=== PATIENT | female | born 1990 | race Caucasian/White ===

== ENCOUNTER 2023-01-03 10:02 | Emergency (ER) | payer MEDICAID, SELFPAY ==
[2023-01-03 10:10] VITALS: BP 118/59; PULSE 87; RESP 16; TEMP 36.7; O2SAT 98; BMI 26.5
--- NOTE | 2023-01-03 10:21 | W.ED.SKABFB ---
HPI - Skin/Abscess/Foreign Bdy General: Chief complaint: Skin/Abscess/Foreign Body Stated complaint: skin problems Time Seen by Provider: 01/03/23 10:15 Source: patient Mode of arrival: ambulatory Limitations: no limitations History of Present Illness: Patient is a nice 32-year-old female with a history of psoriasis that was diagnosed approximately a decade ago here for complaints of worsening rash. 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 She has been treating at home with [id number] hydrocortisone cream. She has not seen a primary care provider in quite some time. She states over the past several days her rash has seemed to acutely worsen. MD complaint: rash Onset (ago): year(s) Tetanus up to date: yes Location: generalized Severity: severe Pain Consistency: constant Relieving factors: none Exacerbating factors: none Context: none Associated symptoms: Reports no associated symptoms; Deny chills or fever(s) Treatments prior to arrival: corticosteroid Review of Systems Const: Denies: fever(s), chills, body aches, fatigue or malaise Card: Denies: chest pain Resp: Denies: dyspnea Musc: Reports: extremity pain (associated with rash); Denies: neck pain, back pain, joint pain, joint swelling, joint redness or joint warmth Skin/Breast: Reports: rash Neuro: Denies: headache(s), numbness in extremities, weakness in extremities or sensory changes PFS ED PFSH: Medical History Cellulitis and abscess of hand Psoriasis Physical Exam Const: COMMON NORMALS: no acute distress, average body habitus, patient oriented x3, no limitations, healthy appearing, alert and well nourished GENERAL APPEARANCE: cooperative ORIENTATION/CONSCIOUSNESS: Yes awake, Yes oriented to person, Yes oriented to place and Yes oriented to time Extremity: NARRATIVE EXTREMITY EXAM: see below Neuro: COMMON NORMALS: patient oriented x3, moves all extremities, no focal motor deficits and no sensory deficits noted SENSORIUM/ORIENTATION: Yes alert, Yes oriented to person, Yes oriented to place and Yes oriented to time Skin: NARRATIVE SKIN EXAM: Patient has extensive psoriatic plaques affecting her bilateral upper and lower extremities, trunk, and groin. Several fissured lesions. RASHES: rashes noted Course Vital Signs: Vital signs: Vital Signs Temperature 98.1 F 01/03/23 10:10 Pulse Rate 87 01/03/23 10:10 Respiratory Rate 16 01/03/23 10:10 Blood Pressure 118/59 01/03/23 10:10 Pulse Oximetry 98 01/03/23 10:10 Oxygen Delivery Me thod Room Air 01/03/23 10:10 MDM - Skin/Abscess/Foreign Bdy Medicial Decision Making Patient certainly would benefit from systemic therapy. States she does have insurance now. Referral will be placed to get her an appointment with dermatology. In the meantime we will place her on oral steroids and give her a higher potency topical steroid. Return to ED precautions given. Discharge Plan Discharge Patient Disposition: Home Clinical Impression: Psoriasis Condition: Stable Prescriptions: New prednisone 10 mg tablet 60 mg PO DAILY 5 Days Qty: 30 0RF clobetasol-emollient 0.05 % cream 1 applic topical BID 14 Days Qty: 60 0RF No Action hydrocortisone 0.5 % Cream 1 applic TOPICAL BID ibuprofen 200 mg Tablet 800 mg PO Q6H PRN (Reason: Pain) Discharge Orders: Discharge ED (Routine); Ordered 01/03/23 Ordered By: Nisha Artis Activity Restrictions/Additional Instructions: As we discussed you need to follow-up with dermatology. I will place a referral with case management to get you set up with an appointment. Due to the extensiveness of your disease you most likely will require systemic therapy. In the meantime I will place you on oral steroids as well as a higher potency steroid cream. Please continue to use your 1% hydrocortisone cream (and not the prescribed steroid) on the face if needed or groin creases. Coding Level of Care Code ED Pesticide Use Medical Coordinator for Lily Abreu
[2023-01-03] MEDS: ketorolac 60 mg/2 mL INJ IM (10:31)
--- NOTE | 2023-01-03 12:33 | DCPLANNER ---
Addendum entered by Randa Culp 01/23/23 16:02: Patient did attend appointment scheduled with dermatology Addendum entered by Randa Culp 01/04/23 08:13: Patient has a follow up appointment scheduled for Wednesday, January 18, 2023 at 4:[address] Bethea at dermatology. Original Note: physical plant manager had message to schedule a follow up appointment for patient with dermatology. physical plant manager sent patients information to the front office staff at dermatology. Patients information will be printed and reviewed. Clinic will call patient with appointment information.
== END 2023-01-03 10:52 | disposition home or self-care (01) ==
PROVIDERS: Emergency Provider Physician Assistant
DX: L40.9 Psoriasis, unspecified (principal)
CPT/HCPCS: 96372; 99284; J1885

== ENCOUNTER 2023-01-18 16:53 | Outpatient (CLI) | payer MEDICAID, SELFPAY | END 2023-01-18 16:54 | disposition home or self-care (01) | PROVIDERS: Visit Provider Dermatology | DX: L40.0 Psoriasis vulgaris (principal); L40.59 Other psoriatic arthropathy | CPT/HCPCS: 99204 ==

== ENCOUNTER 2023-01-25 10:02 | Outpatient (CLI) | payer MEDICAID, SELFPAY ==
[2023-01-25 11:38] LABS: Hepatitis B Surface Antigen Non-Reactive (Nonreactive)
[2023-01-27 13:29] LABS: Quantiferon Mitogen >10.00 IU/mL; Quantiferon Nil 0.03 IU/mL; Quantiferon TB Gold NEGATIVE (NEGATIVE)
== END 2023-01-25 10:03 | disposition home or self-care (01) ==
PROVIDERS: Visit Provider Dermatology
DX: L40.0 Psoriasis vulgaris (principal)
CPT/HCPCS: 36415; 86480; 87340

== ENCOUNTER → 2023-02-20 11:26 | Outpatient (BNVA) | payer MEDICAID, SELFPAY | PROVIDERS: Visit Provider Nurse Practitioner | DX: J06.9 Acute upper respiratory infection, unspecified (principal); U07.1 COVID-19 | CPT/HCPCS: 87426 ==

== ENCOUNTER 2023-06-29 09:58 | Emergency (ER) | payer MEDICAID, SELFPAY ==
[2023-06-29 10:00] VITALS: BP 125/81; PULSE 86; RESP 18; TEMP 36.6; O2SAT 99; BMI 30.1
[2023-06-29 11:10] VITALS: BP 137/84; PULSE 79; O2SAT 100
--- NOTE | 2023-06-29 11:24 | CT_ITS ---
WS: [id number] CT ABDOMEN AND PELVIS WITH CONTRAST HISTORY: abd pain/blood in stool TECHNIQUE: Imaging performed of the abdomen and pelvis with IV contrast. Single phase imaging of the abdomen. Coronal and sagittal reformats are submitted. All CT scans at [facility] use at [address] one of these dose optimization techniques: automated exposure control; mA and/or kV adjustment per patient size (includes targeted exams where dose is matched to clinical indication); or iterative re construction. IV CONTRAST: Omnipaque 350; 100 mL IV. Oral contrast: No DLP: 678.33 mGy.cm COMPARISON: None available. Lower thorax: Lung bases are clear. Heart is normal size. No hiatal hernia. Liver/biliary system: Normal size with no intrahepatic dilatation. Gallbladder: Normal. No gallstones or wall thickening. No pericholecystic fluid. Pancreas: Normal size pancreas and pancreatic duct. No adjacent inflammation. Spleen: Normal size with granulomata. Adrenal glands: Normal RIGHT adrenal gland. 10 mm nodule LEFT adrenal gland too small to characterize . Right kidney: Normal. Left kidney: Normal. Aorta: Normal. Lymphadenopathy: None. Free fluid: None. GI tract: Normal appendix. No obstruction. No submucosal edema. No evidence for hemorrhage. Abdominal wall: Unremarkable abdominal wall. No hernia. Pelvis: No free fluid or adenopathy within the pelvis. Bones: Unremarkable. IMPRESSION: 1. No acute intra-abdominal or pelvic abnormalities. 2. Normal appendix. 3. No submucosal colonic edema or hemorrhage. No GI tract obstruction.
--- NOTE | 2023-06-29 11:24 | W.ED.GIBLEED ---
HPI - GI Bleed General: Chief complaint: GI Bleed Stated complaint: Blood in stool Time Seen by Provider: 06/29/23 11:01 Source: patient Mode of arrival: ambulatory Limitations: no limitations History of Present Illness: 33-year-old female states that she has been having intermittent lower abdominal pain along with bright red blood in her stools been going on for months. States she has not had any workup for it states that yesterday she had some pain and bleeding states that since resolved but she wanted to be checked out. She denies any vomiting denies any fevers. Associated symptoms: Reports abdominal pain; Denies chills, fever(s), headache(s), nausea, rash or vomiting Review of Systems Const: Denies: fever(s), chills, body aches or change in appetite ENMT: Denies: throat pain or dental pain Card: Denies: chest pain Resp: Denies: dyspnea GI: Reports: abdominal pain and hematochezia; Denies: nausea, vomiting or diarrhea : Denies: dysuria Musc: Denies: neck pain or back pain Skin/Breast: Denies: rash Neuro: Denies: headache(s) PFS ED PFSH: Medical History Cellulitis and abscess of hand Psoriasis Female Reproductive History: Date of last menstrual period: 06/28/23 Physical Exam Const: COMMON NORMALS: no acute distress, patient oriented x3 and healthy appearing HENMT: COMMON NORMALS: normocephalic and atraumatic HEAD & SCALP: normocephalic and atraumatic Eye: COMMON NORMALS: conjunctivae normal CONJUNCTIVA: Yes conjunctivae normal Neck/C-Spine: COMMON NORMALS: full ROM and supple Chest: COMMONS NORMALS: normal inspection of the chest Resp: COMMON NORMALS: normal respiratory effort Cardio: COMMON NORMALS: regular rate, regular rhythm and No murmurs present (Cardio) RATE: regular rate RHYTHM: regular rhythm GI: COMMON NORMALS: Normal to inspection, nondistended, normoactive bowel sounds present, Soft to palpation, non-tender and no masses PALPATION: Yes Soft to palpation Extremity: COMMON NORMALS: normal to inspection and full ROM Neuro: COMMON NORMALS: patient oriented x3, moves all extremities and no focal motor deficits Psych: COMMON NORMALS: mental status grossly normal, Normal thought process present and cooperative THOUGHT PROCESS: Normal thought process present Skin: COMMON NORMALS: no rashes or lesions noted and no wounds GENERAL SKIN EXAM: no rashes or lesions noted Course Vital Signs: Vital signs: Vital Signs Temperature 97.9 F 06/29/23 10:00 Pulse Rate 83 06/29/23 13:10 Respiratory Rate 18 06/29/23 10:00 Blood Pressure 128/88 06/29/23 13:10 Pulse Oximetry 94 06/29/23 13:10 Oxygen Delivery Me thod Room Air 06/29/23 13:10 MDM - GI Bleed Medical Decision Making Patient presents here with rectal bleeding also abdominal pains been going on for months her blood work here is normal CT shows no acute findings we will prescribe her Bentyl we will get her follow-up with surgery she is return if worsening she understands agrees to plan. Medical Records I reviewed the patient's medical records. Lab Data I reviewed the patient's lab results. 06/29/23 12:05 06/29/23 12:05 Laboratory Results WBC 8.58 10^3/uL (3.29-11.43) 06/29/23 12:05 RBC 4.89 10^6/uL (3.85-5.65) 06/29/23 12:05 Hgb 14.30 g/dL (11.27-16.99) 06/29/23 12:05 Hct 44.2 % (36-47) 06/29/23 12:05 MCV 90.4 fl (85-98) 06/29/23 12:05 MCH 29.2 pg (27-33) 06/29/23 12:05 MCHC 32.4 g/dL (30-55) 06/29/23 12:05 RDW 13.6 % (12.1-15.1) 06/29/23 12:05 Plt Count 243 10^3/cmm (157-399) 06/29/23 12:05 MPV 8.9 fL (7.4-10.4) 06/29/23 12:05 Neut % (Auto) 62.3 % 06/29/23 12:05 Lymph % (Auto) 28.4 % 06/29/23 12:05 [place] % (Auto) 5.9 % 06/29/23 12:05 Eos % (Auto) 2.3 % 06/29/23 12:05 Baso % (Auto) 0.8 % 06/29/23 12:05 Neut # (Auto) 5.33 10^3/uL (1.8-7.7) 06/29/23 12:05 Lymph # (Auto) 2.4 10^3/uL (0.8-4.8) 06/29/23 12:05 [place] # (Auto) 0.5 10^3/uL (0.2-0.9) 06/29/23 12:05 Eos # (Auto) 0.2 10^3/uL (0.0-0.8) 06/29/23 12:05 Baso # (Auto) 0.1 10^3/uL (0.0-0.1) 06/29/23 12:05 Nucleated RBC % (auto) 0 % 06/29/23 12:05 Nucleated RBCs # 0.0 /100WBC 06/29/23 12:05 PT 13.20 SECONDS (12.1-14.9) 06/29/23 12:20 INR 0.97 (0.8-1.2) 06/29/23 12:20 Sodium 136 mmol/L (136-145) 06/29/23 12:05 Potassium 4.2 mmol/L (3.5-5.1) 06/29/23 12:05 Chloride 104 mmol/L (98-107) 06/29/23 12:05 Carbon Dioxide 23 mmol/L (22-29) 06/29/23 12:05 Anion Gap 13.2 (5-19) 06/29/23 12:05 BUN 7 mg/dL (6-20) 06/29/23 12:05 Creatinine 0.6 mg/dL (0.5-0.9) 06/29/23 12:05 GFR Calculation 115.1 mL/min (90-130) 06/29/23 12:05 Glucose 83 mg/dL (65-115) 06/29/23 12:05 Calculated Osmolality 279 mOsm/kg (285-295) L 06/29/23 12:05 Calcium 9.4 mg/dL (8.5-10.5) 06/29/23 12:05 Total Bilirubin 0.6 mg/dL (0.15-1.2) 06/29/23 12:05 AST 164 U/L (0-32) H 06/29/23 12:05 ALT 149 U/L (0-33) H 06/29/23 12:05 Alkaline Phosphatase 146 U/L (35-105) H 06/29/23 12:05 Total Protein 7.0 g/dL (6.6-8.7) 06/29/23 12:05 Albumin 3.6 g/dL (3.5-5.2) 06/29/23 12:05 Globulin 3.4 g/dL (1.3-4.6) 06/29/23 12:05 HCG, Qual Negative (Negative) 06/29/23 12:05 All radiology interpretation(s) finalized by discharge Discharge Plan Discharge Patient Disposition: Home Clinical Impression: Abdominal pain, Acute lower GI bleeding Condition: Stable Prescriptions: New dicyclomine 20 mg tablet 20 mg PO TID PRN (Reason: abdominal pain) Qty: 20 0RF No Action Humira Pen 40 mg/0.8 mL pen injector kit 40 mg SUBCUT Q14D Discharge Orders: Discharge ED (Routine); Ordered 06/29/23 Ordered By: Deb West Referrals: Kailash Cedeno MD [Physician] - 1-3 days Discharge Diet: Advance as tolerated Discharge Activity: Resume usual activity Patient Instructions: GI Bleeding, Abdominal Pain (ED) Coding Level of Care Code ED Dust Collector Ore Crushing for Lily Abreu
--- NOTE | 2023-06-29 11:29 | PC.PHAR ---
pt states she is only taking her humira pen injection right now-pt states she hasnt taken her hydroxyzine pamoate 25mg tid prn,prozac 20mg daily and naltrexone 50mg take 25mg bid since jan 2023 pt states no longer takes-
[2023-06-29 12:18] VITALS: BP 108/79; PULSE 72; O2SAT 98
[2023-06-29 12:28] LABS: Basophils # 0.1 10^3/uL (0.0-0.1); Basophils % 0.8 %; Eosinophils # 0.2 10^3/uL (0.0-0.8); Eosinophils % 2.3 %; Hematocrit 44.2 % (36-47); Lymphocytes # 2.4 10^3/uL (0.8-4.8); Lymphocytes % 28.4 %; Mean Corpuscular HGB Conc 32.4 g/dL (30-55); Mean Corpuscular Hemoglobin 29.2 pg (27-33); Mean Corpuscular Volume 90.4 fl (85-98); Mean Platelet Volume 8.9 fL (7.4-10.4); Monocytes # 0.5 10^3/uL (0.2-0.9); Monocytes % 5.9 %; Neutrophils # 5.33 10^3/uL (1.8-7.7); Neutrophils % 62.3 %; Nucleated Red Blood Cells % 0 %; Platelet Count 243 10^3/cmm (157-399); Red Blood Count 4.89 10^6/uL (3.85-5.65); Red Cell Distribution Width 13.6 % (12.1-15.1); White Blood Count 8.58 10^3/uL (3.29-11.43)
[2023-06-29 12:42] LABS: INR 0.97 (0.8-1.2)
[2023-06-29 12:42] LABS: HCG, Serum Qual Negative (Negative)
[2023-06-29 12:49] LABS: Alanine Aminotransferase 149 U/L (0-33); Albumin Level 3.6 g/dL (3.5-5.2); Alkaline Phosphatase 146 U/L (35-105); Blood Urea Nitrogen 7 mg/dL (6-20); Calcium 9.4 mg/dL (8.5-10.5); Carbon Dioxide 23 mmol/L (22-29); Chloride 104 mmol/L (98-107); Globulin 3.4 g/dL (1.3-4.6); Glomerular Filtration Rate 115.1 mL/min (90-130); Glucose 83 mg/dL (65-115); Osmolality Calculated 279 mOsm/kg (285-295); Sodium 136 mmol/L (136-145); Total Bilirubin 0.6 mg/dL (0.15-1.2)
[2023-06-29 12:51] LABS: Anion Gap 13.2 (5-19); Aspartate Amino Transferase 164 U/L (0-32); Potassium 4.2 mmol/L (3.5-5.1)
[2023-06-29] MEDS: iohexol 350 mg/mL 500 mL Btl (per mL) IV (13:04)
[2023-06-29 13:10] VITALS: BP 128/88; PULSE 83; O2SAT 94
[2023-06-29 14:06] VITALS: BP 115/76; PULSE 74; O2SAT 99
--- NOTE | 2023-07-03 09:00 | DCPLANNER ---
Message was sent to general surgery on 07/03/23 at 0900. Clinic to contact patient
== END 2023-06-29 14:07 | disposition home or self-care (01) ==
PROVIDERS: Emergency Provider Emergency Medicine
DX: K92.2 Gastrointestinal hemorrhage, unspecified (principal); R10.30 Lower abdominal pain, unspecified
CPT/HCPCS: 74177; 80053; 84703; 85025; 85610; 99285; Q9967

== ENCOUNTER 2023-07-31 10:19 | Outpatient (CLI) | payer MEDICAID, SELFPAY | END 2023-07-31 10:20 | disposition home or self-care (01) | LOC: LAB 10:23 | PROVIDERS: Surgery; Visit Provider Internal Medicine Gastroenterology | DX: R19.7 Diarrhea, unspecified (principal) | CPT/HCPCS: 82274; 83630; 83993 ==

== ENCOUNTER 2024-04-03 11:42 | Outpatient (CLI) | payer MEDICAID, SELFPAY | END 2024-04-03 11:43 | disposition home or self-care (01) | LOC: LAB 11:43 | PROVIDERS: Visit Provider Nurse Practitioner Family | DX: L40.0 Psoriasis vulgaris (principal) | CPT/HCPCS: 36415; 86480 ==

== ENCOUNTER 2024-10-01 18:21 | Emergency (ER) | payer MEDICAID, SELFPAY ==
[2024-10-01 18:28] VITALS: BP 138/91; PULSE 80; RESP 16; TEMP 36.6; O2SAT 98; BMI 30.1
--- NOTE | 2024-10-01 18:40 | XRR_ITS ---
PROCEDURE INFORMATION: Exam: XR Left Ankle Exam date and time: 10/01/2024 7:03 PM Age: 34 years old Clinical indication: Injury or trauma; Fall; Blunt trauma; Ankle; Left TECHNIQUE: Imaging protocol: Radiologic exam of the left ankle. Views: 3 or more views. COMPARISON: No relevant prior studies available. FINDINGS: Bones/joints: Posterior dislocation of the talus by as much as 1.8 cm. This is associated with a minimally displaced medial malleolar fracture. There is also a severely comminuted mildly displaced/depressed distal fibular diaphyseal fracture. There is up to 8 mm medial displacement of the distal fracture fragments in relation to the fibular shaft. There is a mildly displaced intra-articular fracture of the posterior malleolus of the distal tibia. Soft tissues: Mild soft tissue swelling about the ankle. XR/XR ankle LT min 3V* [id number] IMPRESSION: Posterior dislocation of the talus associated with a trimalleolar ankle fracture as described above associated with mild adjacent soft tissue swelling.
--- NOTE | 2024-10-01 18:43 | ED_ITS ---
HPI - Extremity Problem General: Chief complaint: Extremity Injury, Lower Stated complaint: Left Ankle Injury Time Seen by Provider: 10/01/24 18:39 History of Present Illness: 34-year-old female presents emergency ro om after slipping as she was getting out of a pickup and slipped and injured her left ankle she is unable to bear weight she denies any other injuries. No recent illnesses. She not strike her head she not lose consciousness. Associated symptoms: Deny chest pain, fever(s) or rash Related Data Home Medications ?Medication ?Instructions ?Recorded ?Confirmed guselkumab 100 mg/mL subcutaneous mg SUBCUT 02/24/24 1 07/09/23 auto-injector (Tremfya) Previous Rx's ?Medication ?Instructions ?Recorded hydrocodone 5 mg-acetaminophen 325 1 tab PO Q6H PRN pa in #20 tabs 10/01/24 mg tablet promethazine 25 mg tablet 25 mg PO Q6H PRN nausea and 10/01/24 vomiting #20 tabs Knee Scooter #1 ea 10/03/24 hydrocodone 5 mg-acetaminophen 325 1 tab PO Q6H PRN pa in 5 days #20 10/03/24 mg tablet tabs Allergies Allergy/AdvReac Type Severity Reaction Status Date / Time codeine AdvReac Mild ADR-Itching Verified 10/03/24 10:56 Review of Systems Const: Denies: fever(s) or chills Card: Denies: chest pain Resp: Denies: dyspnea GI: Denies: abdominal pain : Denies: dysuria, urinary frequency or urinary urgency Musc: Denies: neck pain or back pain Skin/Breast: Denies: rash PFS ED PFSH: Medical History Cellulitis and abscess of hand Psoriasis Family History Father Diabetes Heart disease Social History Smoking and tobacco/nicotine status: current every day tobacco/nicotine user Alcohol intake: current Alcohol intake frequency: holidays/special occasions only Physical Exam Const: GENERAL APPEARANCE: cooperative ORIENTATION/CONSCIOUSNESS: Yes awake, Yes oriented to person, Yes oriented to place and Yes oriented to time HENMT: COMMON NORMALS: normocephalic, atraumatic and hearing grossly normal bilaterally HEAD & SCALP: normocephalic and atraumatic Resp: COMMON NORMALS: normal respiratory effort, No retractions, No use of accessory muscles and clear to auscultation bilaterally AUSCULTATION: clear to auscultation bilaterally Cardio: COMMON NORMALS: regular rate, regular rhythm and No murmurs present (Cardio) RATE: regular rate RHYTHM: regular rhythm Extremity: OTHER: Examination of the left ankle patient has good dorsalis pedis posterior tibialis pulses. Sensation normal good movement of the toes she has swelling about the ankle exquisite tenderness even light palpation. Neuro: SENSORIUM/ORIENTATION: Yes oriented to person, Yes oriented to place and Yes oriented to time Skin: COMMON NORMALS: no rashes or lesions noted GENERAL SKIN EXAM: no rashes or lesions noted Procedures Orthopedic Fracture Reduction Fracture #1: Side: left Fracture Reduction Location: other (Ankle) Analgesia: procedural sedation Technique: direct manipulation Post Reduction X-rays Demonstrate: anatomical reduction Post-reduction neuro exam: intact Post-reduction vascular exam: intact Splint Applied: Yes Patient Tolerated Procedure: well Procedural Sedation Indication: fracture/dislocation reduction ASA Class: I Preparation: cardiac cath lab manager applied, pulse oximeter, suction/airway equipment at bedside and IV secured IV Etomidate dose (mg): 10 Course Vital Signs: Vital signs: Vital Signs Temperature 98 F 10/01/24 18:28 Pulse Rate 81 10/01/24 20:38 Respiratory Rate 16 10/01/24 20:38 Blood Pressure 132/80 10/01/24 20:38 Pulse Oximetry 95 10/01/24 20:38 Oxygen Delivery Me thod Nasal Cannula 10/01/24 19:45 MDM - Extremity (Nontraumatic) Medical Decision Making Procedural sedation inline traction reduced well. Post reduction x-ray of the ankle near anatomical alignment. Splint placed will refer to orthopedic/podiatry. Reviewed findings with the patient discharge home with posterior splint as well as crutches recommend elevation and pain medications as needed. Referred to orthopedics Lab Data Radiology Impressions Ankle X-Ray 10/01/24 20:00 IMPRESSION: 1. Fine osseous details obscured by overlying cast. 2. Interval reduction of the previously dislocated talus in relation to the tibial plafond. Alignment appears anatomic. 3. Improved alignment of the posterior malleolar fracture. 4. Grossly stable alignment of the comminuted mildly displaced/depressed comminuted distal fibular diaphyseal fracture. 5. Slightly improved alignment of the minimally displaced medial malleolar fracture. Ankle CT 10/01/24 20:08 IMPRESSION: 1. Nondisplaced intra-articular medial malleolar fracture. 2. Nondisplaced intra-articular fracture of the posterior malleolus with approximately 2 mm of depression at the level of the articular surface of the posterior fracture fragment. 3. Comminuted fracture of the distal fibular diaphysis without extension into the ankle joint. 4. Three intra-articular fracture fragments located along the anterior aspect of the tibiotalar joint with the largest fragment measuring 4 x 4 x 2 mm. 5. Intra-articular fracture fragment measuring 3 x 3 x 4 mm located along the anteromedial aspect of the articular surface of talus adjacent to the anterior margin of the aforementioned nondisplaced medial malleolar fracture. 6. Tibiotalar articulation appears congruent. 7. Significant soft tissue swelling along the lateral aspect of the distal fibula and ankle. All radiology interpretation(s) finalized by discharge Discharge Plan Discharge Patient Disposition: Home Clinical Impression: Trimalleolar fracture of left ankle Condition: Stable Prescriptions: New hydrocodone-acetaminophen 5-325 mg tablet 1 tab PO Q6H PRN (Reason: pain) Qty: 20 0RF promethazine 25 mg tablet 25 mg PO Q6H PRN (Reason: nausea and vomiting) Qty: 20 0RF No Action (DME) Knee Scooter See Rx Instructions .Route .MEDSUPPLY Qty: 1 0RF Rx Instructions: As directed by Home hydrocodone-acetaminophen 5-325 mg tablet 1 tab PO Q6H PRN (Reason: pain) 5 Days Qty: 20 0RF Tremfya 100 mg/mL auto-injector SUBCUT Discharge Orders: Discharge ED (Routine); Ordered 10/01/24 Ordered By: Harsha Moyer Discharge Diet: Usual diet Discharge Activity: Limit activity as instructed Patient Instructions: Opioid Safety, Pain Management Activity Restrictions/Additional Instructions: Thank you for choosing [facility] for your healthcare needs today. It is very important that you follow up as instructed or that you return to the Emergency Department should you have concerns or if your condition changes or worsens in any way. You were seen in the emergency room with an ankle fracture. The fracture was reduced and splinted you should not bear any weight at all on the your left foot use the crutches. Whenever possible elevate the foot you can apply ice to reduce swelling you are given pain and nausea medications to use as needed. Case management make arrangements for you to see one of the optical instrument assembly supervisor in the next 1 to 2 days they will discuss your definitive care for the fracture. Leave the splint in place until you see the optical instrument assembly supervisor. Stand Alone Forms: Work/School Release Print Language: Macedonian Coding Level of Care Code ED Manager [place] for Lily Abreu
[2024-10-01] MEDS: ketorolac 30 mg/mL INJ IVP (18:57)
[2024-10-01] MEDS: ondansetron 2 mg/ML SDV 2 mL 4 MG IVP (18:57)
[2024-10-01] MEDS: morphine 4 mg/mL SDV 1 mL IVP (18:57)
[2024-10-01 18:59] VITALS: BP 134/76; PULSE 79; RESP 16; O2SAT 97
[2024-10-01 19:45] VITALS: BP 127/84; PULSE 90; RESP 16; O2SAT 99
[2024-10-01] MEDS: etomidate 2 mg/mL INJ SDV 10 mL 10 MG IVP (19:57)
--- NOTE | 2024-10-01 20:00 | XRR_ITS ---
PROCEDURE INFORMATION: Exam: XR Left Ankle Exam date and time: 10/01/2024 7:54 PM Age: 34 years old Clinical indication: Injury or trauma; Fall; Blunt trauma; Ankle; Left; Additional info: Post reduction TECHNIQUE: Imaging protocol: Radiologic exam of the left ankle. Views: 1 or 2 views. COMPARISON: CR (LOW EXM, ) 10/01/2024 7:03 PM FINDINGS: Bones/joints: Fine osseous details obscured by overlying cast. Interval reduction of previously dislocated talus in relation to the tibial plafond. Alignment appears anatomic. Improved alignment of the posterior malleolar fracture. Grossly stable alignment of the comminuted mildly displaced/depressed comminuted distal fibular diaphyseal fracture. Slightly improved alignment of the minimally displaced medial malleolar fracture. Soft tissues: Mild soft tissue swelling about the ankle. XR/XR ankle LT 2V [id number] IMPRESSION: 1. Fine osseous details obscured by overlying cast. 2. Interval reduction of the previously dislocated talus in relation to the tibial plafond. Alignment appears anatomic. 3. Improved alignment of the posterior malleolar fracture. 4. Grossly stable alignment of the comminuted mildly displaced/depressed comminuted distal fibular diaphyseal fracture. 5. Slightly improved alignment of the minimally displaced medial malleolar fracture.
[2024-10-01 20:03] VITALS: BP 149/90; PULSE 80; RESP 16; O2SAT 98
--- NOTE | 2024-10-01 20:08 | CTR_ITS ---
PROCEDURE INFORMATION: Exam: CT Left Lower Extremity Without Contrast, Ankle Exam date and time: 10/01/2024 8:20 PM Age: 34 years old Clinical indication: Injury or trauma; Fall; Blunt trauma; Ankle; Left; Additional info: Trimalleolar fracture TECHNIQUE: Imaging protocol: CT of the left lower extremity without contrast was performed. Exam focused on the ankle. Radiation optimization: All CT scans at this facility use at least one of these dose optimization techniques: automated exposure control; mA and/or kV adjustment per patient size (includes targeted exams where dose is matched to clinical indication); or iterative reconstruction. COMPARISON: CR (LOW EXM, ) 10/01/2024 7:54 PM RADIATION DOSE METRICS: Total DLP (mGy-cm): 126.58 FINDINGS: Bones/joints: Nondisplaced intra-articular medial malleolar fracture. Nondisplaced intra-articular fracture of the posterior malleolus with approximately 2 mm of depression at the level of the articular surface of the posterior fracture fragment. Comminuted fracture of the distal fibular diaphysis without extension into the ankle joint. Three intra-articular fracture fragments located along the anterior aspect of the tibiotalar joint with the largest fragment measuring 4 x 4 x 2 mm. Intra-articular fracture fragment measuring 3 x 3 x 4 mm located along the anteromedial aspect of the articular surface of talus adjacent to the anterior margin of the aforementioned nondisplaced medial malleolar fracture. Tibiotalar articulation appears congruent. Soft tissues: Significant soft tissue swelling along the lateral aspect of the distal fibula and ankle. No evidence tendinous rupture or entrapment. CT/CT ankle LT wo con* [id number] IMPRESSION: 1. Nondisplaced intra-articular medial malleolar fracture. 2. Nondisplaced intra-articular fracture of the posterior malleolus with approximately 2 mm of depression at the level of the articular surface of the posterior fracture fragment. 3. Comminuted fracture of the distal fibular diaphysis without extension into the ankle joint. 4. Three intra-articular fracture fragments located along the anterior aspect of the tibiotalar joint with the largest fragment measuring 4 x 4 x 2 mm. 5. Intra-articular fracture fragment measuring 3 x 3 x 4 mm located along the anteromedial aspect of the articular surface of talus adjacent to the anterior margin of the aforementioned nondisplaced medial malleolar fracture. 6. Tibiotalar articulation appears congruent. 7. Significant soft tissue swelling along the lateral aspect of the distal fibula and ankle.
[2024-10-01 20:38] VITALS: BP 132/80; PULSE 81; RESP 16; O2SAT 95
--- NOTE | 2024-10-02 08:34 | DCPLANNER ---
Scheduled with patient for Podiatry Appointment 10/03/24 @ 0209
== END 2024-10-01 20:54 | disposition home or self-care (01) ==
PROVIDERS: Emergency Provider Family Medicine
DX: S82.855A Nondisplaced trimalleolar fracture of left lower leg, initial encounter for closed fracture (principal); Z72.0 Tobacco use; W01.0XXA Fall on same level from slipping, tripping and stumbling without subsequent striking against object, initial encounter
CPT/HCPCS: 27818; 73600; 73610; 73700; 96374; 96375; 99152; 99285; J1885; J2270; J2405; J3490

== ENCOUNTER 2024-10-09 07:21 | Day surgery (SDC) | payer MEDICAID, SELFPAY ==
[2024-10-09] VITALS (20 sets, daily range): BP systolic 105–136; BP diastolic 68–98; PULSE 69–98; RESP 14–20; TEMP 36.2–36.6; O2SAT 92–100
--- NOTE | 2024-10-09 | XR_ITS ---
WS: [id number] C-ARM RADIOGRAPHS LEFT ANKLE; 4 IMAGES HISTORY: ORIF left trimalleolar ankle fracture COMPARISON: 10/09/2024 radiographs, 10/01/2024 radiographs. Status post plate and screw fixation distal fibular and tibial fractures. Fracture is in good position and alignment. Study is significantly compromised by portable technique and motion. XR/XR ankle LT 2V [id number] IMPRESSION: Status post ORIF LEFT ankle fracture.
[2024-10-09 07:44] LABS: OR HCG Qualitative Urine Negative (Negative)
--- NOTE | 2024-10-09 07:58 | P.HPUD_ITS ---
Surgery/Procedure H&P Update DATE OF PROCEDURE: October 09, 2024 DATE H&P PERFORMED: 10/03/24 H&P UPDATE INFORMATION: I have reviewed H&P completed within last 30 days, I have examined patient prior to procedure, No changes to prior documentation, H&P is in [facility] EMR on date indicated and Risks and benefits of the procedure reviewed PREOP DIAGNOSIS: Left trimalleolar ankle fracture PLANNED PROCEDURE: Operation Date: 10/09/24 09:00 Proposed Procedures p ORIF Ankle ORIF Trimalleolar Fracture(Left) - Kailash Donovan DPM s Syndesmotic Repair(Left) - ADITYA Bess Left ankle arthroscopy with loose body removal(Left) - Kailash Donovan DPM
[2024-10-09] MEDS: sodium chloride 0.9% 1,000 ML 30 ML IV (08:08)
[2024-10-09] MEDS: CELEcoxib 200 mg Capsule 400 MG PO (08:10)
[2024-10-09] MEDS: gabapentin 300 mg Capsule PO (08:11)
--- NOTE | 2024-10-09 08:36 | SUR.PREOP ---
LEFT POPLITEAL NERVE BLOCK PERFORMED BY DOCTOR Vasquez, USING 20ML OF 0.5% ROPIVACAINE, WITH 4MG OF DECADRON. PT ON [employer] SPECIALIST SHOWING NSR. PT TOLERATED PROCEDURE WELL.
--- NOTE | 2024-10-09 08:37 | ANES.PREANE2 ---
Pre-Anesthetic Assessment Height/Weight: Height 1.6 m Weight 7.711 kg Temp Pulse Resp BP Pulse Ox O2 Del Method 97.8 F 78 18 119/73 96 Room Air 10/09/24 07:51 10/09/24 08:20 10/09/24 08:20 10/09/24 08:20 10/09/24 08:20 10/09/24 08:20 Preop Diagnosis: Left trimalleolar ankle fracture Operation Date: 10/09/24 09:00 Proposed Procedures p ORIF Ankle ORIF Trimalleolar Fracture(Left) - Kailash Donovan DPM s Syndesmotic Repair(Left) - ADITYA Bess Left ankle arthroscopy with loose body removal(Left) - Kailash Donovan DPM Familial anesthetic complications: None Was Beta Kristopher taken within 24 hours: N/A Was Clonidine taken within 24 hours: N/A Last intake: Intake Last Liquid Date 10/08/24 Last Liquid Time 23:30 Last Solid Date 10/08/24 Last Solid Time 19:00 Social Tobacco and No alcohol Exam alert, oriented x 3, clear to auscultation bilaterally and regular rate & rhythm Airway Mallampati: Class I Dentition: other (very poor dentition) Musc/skel psoriasis Anesthetic Plan ASA status: 2 Anesthesia: General and Regional (specify below) Risk of > 500 ml blood loss (7ml/kg in children): No Medications/Allergies Home Medications ?Medication ?Instructions ?Recorded ?Confirmed ?Last Taken ?Type guselkumab 100 mg/mL subcutaneous 100 mg SUBCUT .Q8W 02/24/24 10/08/24 09/17/24 History auto-injector (Tremfya) hydrocodone 5 mg-acetaminophen 325 1 tab PO Q6H PRN pain #20 tabs 10/01/24 10/08/24 10/09/24 Rx mg tablet promethazine 25 mg tablet 25 mg PO Q6H PRN nausea and 10/01/24 10/08/24 Unknown Rx vomiting #20 tabs Knee Scooter #1 ea 10/03/24 10/03/24 Unknown Rx ibuprofen 800 mg tablet 800 mg PO TID 10/08/24 10/08/24 10/08/24 History hydrocodone 10 mg-acetaminophen 1 tab PO Q6H PRN pain #28 tabs 10/09/24 Unknown Rx 325 mg tablet Allergies Allergy/AdvReac Type Severity Reaction Status Date / Time codeine AdvReac Mild ADR-Itching Verified 10/08/24 10:14 Current Medications Generic Name Dose Route Start Last Admin Trade Name Anthony PRN Reason Stop Dose Admin Sodium Chloride 1,000 mls @ 30 mls/hr 10/09/24 07:30 10/09/24 08:08 Sodium Chloride 0.9% IV 10/10/24 07:29 30 mls/hr .Q24H YOUSUF Administration PFSH Anesthesia Medical History Cellulitis and abscess of hand Psoriasis Family History Father Diabetes Heart disease Social History Smoking and tobacco/nicotine status: current every day tobacco/nicotine user Alcohol intake: current Alcohol intake frequency: holidays/special occasions only Female Reproductive History Date of last menstrual period: 09/10/24 Anesthesia Procedures Nerve Block Nerve Block 1: Main Anesthesia: general anesthesia Time Out Performed: Yes Consent: requested by attending/covering physician, from patient, from other, risks and benefits reviewed and patient agrees to proceed Nerve block location: popliteal (L) Anesthesia monitors applied: pulse oximetry, EKG and BP cuff Nerve block position: supine Anesthetic Used: ropivicaine 0.5% (20 ml) and with decadron (4 mg) Ultrasound used to: recognize landmarks Interscalene/Femoral BLK: 4 stimuplex 21 g needle used for position and inplane approach, visualize local anesthetic spread and no vascular puncture identified Injection: neg aspiration of heme Patient Tolerated Procedure: well Complications: none
[2024-10-09] MEDS: ceFAZolin 2,000 mg SDV 2000 MG IVP (09:25)
--- NOTE | 2024-10-09 12:12 | XR_ITS ---
WS: [id number] Exam: XR ankle LT min 3V* [id number] Date/Time of Exam: 10/09/2024 12:23 PM Reason For Exam: post op Comparison 10/01/2024. There is plate and screw fixation involving fractures of the lower fibula and posterior tibial shelf. There is also a single screw stabilizing a transverse fracture of the medial malleolus. Alignment appears satisfactory for healing. No obvious hardware complication.
--- NOTE | 2024-10-09 12:12 | W.PM.BPON ---
Date of procedure: 10/09/24 Surgeon name: Dr. Kailash Donovan DPM Product Inspection Coordinator(s) name(s): Hernan Procedure(s) performed: ORIF left trimalleolar ankle fracture Description of findings: Left trimalleolar ankle fracture with comminution of fibula Estimated blood loss: 5cc Tourniquet time: 120 minutes Specimen(s) removed: none Post-operative diagnosis: Left trimalleolar ankle fracture
--- NOTE | 2024-10-09 12:14 | P.OP_ITS ---
Operative Report Date of procedure: October 09, 2024 Surgeon: Kailash Donovan DPM Procedure: Date of procedure: 10/09/2024 Pre-op diagnosis: Left trimalleolar ankle fracture Post-op diagnosis: Same Post-op findings: Left trimalleolar ankle fracture Procedure done: Open reduction internal fixation left trimalleolar ankle fracture CPT 03648 Implants: Posterior malleolus plate, posterior fibular plate with corresponding locking and nonlocking 3.5 screws, 4.0 medial malleolus screw all from [place] Specimens removed: None Surgeon: Dr. Kailash Donovan DPM Shearing Machine Tender: Hernan Estimated blood loss: 5 cc Tourniquet time: 120 minutes Complications: None Patient is a 34-year-old female that has a history of left trimalleolar ankle fracture. The patient has had the aforementioned chief complaint for some time. Conservative treatment measures have been attempted and the patient has opted for surgical intervention at this time. A lengthy discussion regarding the procedure, including risks and complications has been had with the patient and is noted in the recent clinic note. Written and verbal consent have been obtained. All patient questions have been answered to the patient?s satisfaction. No written or verbal guarantees have been given or implied. The patient has been NPO since midnight. The history has been reviewed and the history and physical is current. The signed consent was confirmed and placed in the patient chart. Patient imaging has been reviewed and is consistent with the diagnosis. Under mild sedation, the patient was brought into the operating room and placed on the table in the prone position. IV antibiotics were given by the anesthesia team as preoperative surgical prophylaxis. General sedation was then performed by the anesthesiateam. A popliteal/adductor canal block was performed with anesthesia department. A pneumatic tourniquet was then placed about the left thigh. The operative extremity was then prepped and draped in the usual fashion. The extremity was then elevated and exsanguinated before the tourniquet was inflated to 325 mmHg. After inflation, the following procedure was then performed. Attention was directed to the posterior aspect of the left ankle where an 8 cm incision was made posterolaterally. This was made using a #15 blade. Dissection was carried down through subcutaneous the superficial fascia. Peroneal fascia was incised and peroneals were retracted out of the operative field. Flexor hallucis longus muscle belly was identified fascia was released and muscle belly was retracted out of the operative field. Sural nerve was identified and retracted out of the operative field. Dissection was carried down to the level of the posterior aspect of the tibia. Posterior malleolus fracture fragment was visualized. Hematoma was cleared from the fracture site. Fracture was reduced to appropriate anatomic position for temporary fixation. A posterior malleolar plate from [place] 28 with 3.5 locking and nonlocking screws was applied to the posterior aspect of the tibia. Good positioning of plate and screws was noted. Attention was then directed to the posterior aspect of the fibula. Peroneals were retracted of the way to expose the fibular fracture whi ch showed significant comminution. This was reduced to an acceptable anatomic position before a posterior fibular plate was applied to the posterior aspect of the fibula. This plate was used in a bridge plate fashion to span the comminution. Good position of the plate and screws was noted clinically as well as on C-arm imaging. Site was irrigated with copious amounts of sterile saline before attention was directed to closure. Deep tissue was closed with 3-0 Vicryl followed by subcuticular closure with 4-0 Vicryl and skin closure with 3- 0 nylon in horizontal mattress fashion. The tourniquet was let down the patient was flipped to the supine position. Patient was redraped and prepped. Attention was then directed to the medial malleolus. The medial malleolus was reduced to an appropriate anatomic position. A K wire was driven across the fracture site. #15 blade was used to incise around the wire. Blunt dissection was carried down to the level of the medial malleolus. Drilled for 4.0 cannulated screw was then used to overdrilled the wire in preparation for the screw. A 4.0 headed short threaded compression screw was then inserted over the wire across the fracture site. Good alignment of the fracture site was noted. Talus was well-positioned within the mortise with ankle joint being congruent. Syndesmosis was stressed and was noted to be intact. It was determined at this point due to the swelling that ankle arthroscopy would be detrimental to patient's rehabilitation. Will return to the operating room in coming weeks for ankle arthroscopy. Incision site was irrigated with sterile saline before being dressed with 3-0 nylon. All incisions were then dressed with Xeroform, 4 x 4 gauze, Kerlix, Kodi bandage. The patient tolerated the procedure and anesthesia well and without complication. The patient was transported from the operating room to the recovery room with vital signs stable and vascular status intact to all digits of the left foot. The patient was given both written and verbal instructions to remain nonweightbearing to the operative extremity, to keep dressings/splint clean, dry and intact and to take pain medication as directed. The patient will follow-up in the outpatient setting at their scheduled appointment. The patient was discharged with my personal number and was instructed to call if any questions or issues should arise. They were discharged home once anesthesia criteria was met.
[2024-10-09] MEDS: fentaNYL 50 mcg/mL INJ 2mL IVP (12:45)
--- NOTE | 2024-10-09 14:45 | ANE.PACU2 ---
Inpatient post-anesthesia follow up: Airway intact: Yes Vital signs: Temperature 97.8 F Pulse Rate 84 Respiratory Rate 16 Blood Pressure 120/72 Pulse Oximetry 94 Oxygen Delivery Me thod Room Air Oxygen Flow Rate 2 Fraction of Inspir ed Oxygen Hydration adequate: Yes Nausea and vomiting: No Pain level: 2 Mental status: Baseline
== END 2024-10-09 14:45 | disposition home or self-care (01) ==
PROVIDERS: Anesthesiology; PCP Podiatrist Foot & Ankle Surgery; Visit Provider Podiatrist Foot & Ankle Surgery
PROC: (CPT 27823; principal; 2024-10-09 09:00)
DX: S82.852A Displaced trimalleolar fracture of left lower leg, initial encounter for closed fracture (principal); F17.200 Nicotine dependence, unspecified, uncomplicated; Z79.899 Other long term (current) drug therapy; Z88.5 Allergy status to narcotic agent; V58.4XXA Person boarding or alighting a pick-up truck or van injured in noncollision transport accident, initial encounter
CPT/HCPCS: 27823; 73600; 73610; 76000; 81025; C1713; J0690; J1100; J1171; J2405; J2704; J2795; J3010; J7030; J9999

== ENCOUNTER → 2024-10-15 11:10 | Outpatient (BNVA) | payer MEDICAID, SELFPAY | PROVIDERS: PCP Podiatrist Foot & Ankle Surgery; Visit Provider Podiatrist Foot & Ankle Surgery | DX: S82.852A Displaced trimalleolar fracture of left lower leg, initial encounter for closed fracture (principal); S93.432A Sprain of tibiofibular ligament of left ankle, initial encounter; M24.072 Loose body in left ankle; X58.XXXA Exposure to other specified factors, initial encounter | CPT/HCPCS: 73610 ==

== ENCOUNTER → 2024-10-23 15:21 | Outpatient (BNVA) | payer MEDICAID, SELFPAY | PROVIDERS: PCP Podiatrist Foot & Ankle Surgery; Visit Provider Podiatrist Foot & Ankle Surgery | DX: M24.072 Loose body in left ankle (principal); Z98.890 Other specified postprocedural states; S93.432D Sprain of tibiofibular ligament of left ankle, subsequent encounter; S82.852D Displaced trimalleolar fracture of left lower leg, subsequent encounter for closed fracture with routine healing; W19.XXXD Unspecified fall, subsequent encounter | CPT/HCPCS: 73610 ==

== ENCOUNTER → 2024-11-06 13:42 | Outpatient (BNVA) | payer SELFPAY | PROVIDERS: PCP Podiatrist Foot & Ankle Surgery; Visit Provider Podiatrist Foot & Ankle Surgery | DX: M25.572 Pain in left ankle and joints of left foot (principal); Z98.890 Other specified postprocedural states; S82.852A Displaced trimalleolar fracture of left lower leg, initial encounter for closed fracture; S93.432A Sprain of tibiofibular ligament of left ankle, initial encounter; M24.072 Loose body in left ankle; X58.XXXA Exposure to other specified factors, initial encounter | CPT/HCPCS: 73610 ==

== ENCOUNTER 2024-11-18 06:49 | Day surgery (SDC) | payer SELFPAY ==
[2024-11-18] VITALS (10 sets, daily range): BP systolic 94–144; BP diastolic 61–93; PULSE 63–81; RESP 13–21; TEMP 36.3–37.2; O2SAT 92–100; BMI 28.3
--- NOTE | 2024-11-18 07:25 | W.PM.OPSUD ---
Surgery/Procedure H&P Update DATE OF PROCEDURE: November 18, 2024 DATE H&P PERFORMED: 11/06/24 H&P UPDATE INFORMATION: I have reviewed H&P completed within last 30 days, I have examined patient prior to procedure, No changes to prior documentation, H&P is in [facility] EMR on date indicated and Risks and benefits of the procedure reviewed PREOP DIAGNOSIS: Loose body left ankle PLANNED PROCEDURE: Operation Date: 11/18/24 08:15 Proposed Procedures p LEFT Ankle Arthroscopy(Left) - Kailash Donovan DPM
--- NOTE | 2024-11-18 07:32 | ANES.PREANE2 ---
Pre-Anesthetic Assessment Height/Weight: Height 1.6 m Weight 72.575 kg Temp Pulse Resp BP Pulse Ox O2 Del Method 97.9 F 77 18 144/93 98 Room Air 11/18/24 07:00 11/18/24 07:00 11/18/24 07:00 11/18/24 07:00 11/18/24 07:00 11/18/24 07:00 Preop Diagnosis: Loose body left ankle Operation Date: 11/18/24 08:15 Proposed Procedures p LEFT Ankle Arthroscopy(Left) - Kailash Donovan DPM Familial anesthetic complications: None Was Beta Kristopher taken within 24 hours: N/A Was Clonidine taken within 24 hours: N/A Last intake: Intake Last Liquid Date 11/17/24 Last Liquid Time 23:55 Last Solid Date 11/17/24 Last Solid Time 21:00 Social No alcohol and No tobacco Exam alert, oriented x 3, clear to auscultation bilaterally and regular rate & rhythm Airway Mallampati: Class I Dentition: full Anesthetic Plan ASA status: 1 Anesthesia: General and Regional (specify below) Risk of > 500 ml blood loss (7ml/kg in children): No Medications/Allergies Home Medications ?Medication ?Instructions ?Recorded ?Confirmed ?Last Taken ?Type guselkumab 100 mg/mL subcutaneous 100 mg SUBCUT .Q8W 02/24/24 11/18/24 09/17/24 History auto-injector (Tremfya) promethazine 25 mg tablet 25 mg PO Q6H PRN nausea and 10/01/24 11/14/24 Unknown Rx vomiting #20 tabs Knee Scooter #1 ea 10/03/24 11/06/24 Unknown Rx ibuprofen 800 mg tablet 800 mg PO TID 10/08/24 11/18/24 11/17/24 History gabapentin 300 mg capsule 300 mg PO DAILY 30 days #30 caps 10/23/24 11/14/24 11/17/24 Rx tizanidine 4 mg tablet 4 mg PO DAILY PRN muscle 10/23/24 11/14/24 11/16/24 Rx spasticity #30 tabs Allergies Allergy/AdvReac Type Severity Reaction Status Date / Time codeine AdvReac Mild ADR-Itching Verified 11/18/24 07:25 [facility] Anesthesia Medical History Cellulitis and abscess of hand Psoriasis Family History Father Diabetes Heart disease Social History Smoking and tobacco/nicotine status: never used tobacco/nicotine Alcohol intake: current Alcohol intake frequency: holidays/special occasions only
[2024-11-18 07:34] LABS: OR HCG Qualitative Urine Negative (Negative)
[2024-11-18] MEDS: sodium chloride 0.9% 1,000 ML 30 ML IV (07:39)
[2024-11-18] MEDS: gabapentin 300 mg Capsule PO (07:52)
[2024-11-18] MEDS: CELEcoxib 200 mg Capsule 400 MG PO (07:52)
--- NOTE | 2024-11-18 07:53 | ANES.PROC ---
Anesthesia Procedures Procedure/Date: 11/18/24 Nerve Block ^: Nerve Block 1: Main Anesthesia: general anesthesia Time Out Performed: Yes Consent: requested by attending/covering physician, from patient, from other, risks and benefits reviewed and patient agrees to proceed Nerve block location: popliteal (L) Anesthesia monitors applied: pulse oximetry, EKG and BP cuff Nerve block position: supine Anesthetic Used: ropivicaine 0.5% (30 ml) and with decadron (4 mg) Ultrasound used to: recognize landmarks Interscalene/Femoral BLK: 4 stimuplex 21 g needle used for position and inplane approach, visualize local anesthetic spread and no vascular puncture identified Injection: neg aspiration of heme Patient Tolerated Procedure: well Complications: none Other Information: Diagnosis: L ankle Syndesmotic disruption
[2024-11-18] MEDS: ceFAZolin 2,000 mg SDV 2000 MG IVP (07:59)
--- NOTE | 2024-11-18 08:03 | SUR.PREOP ---
07:48 EDUARDO performed timeout and popliteal block to left lower extremity using 30mL of 0.5% ropivicaine with ultrasound imaging. Images obtained and patient tolerated well.
--- NOTE | 2024-11-18 08:54 | P.OP_ITS ---
Operative Report Date of procedure: November 18, 2024 Surgeon: Kailash Donovan DPM Procedure: Date of procedure: 11/18/2024 Pre-op diagnosis: Status post left ankle trimalleolar ankle fracture with intra- articular loose body Post-op diagnosis: Same Post-op findings: Significant intra-articular synovitis left ankle with cartilaginous defect of talar dome medially Procedure done: Left ankle arthroscopy CPT 79838 Implants: None Specimens removed: None Surgeon: Dr. Kailash Donovan DPM Customer Service Professional: Hernan 5 cc Estimated blood loss: 5 cc Tourniquet time: 35-minute Complications: None Patient is a 34-year-old female that has a history of left trimalleolar ankle fracture status post open reduction internal fixation. Patient had persistent intra-articular loose bodies that was not addressed during initial surgery due to intraoperative swelling. A lengthy discussion regarding the procedure, including risks and complications has been had with the patient and is noted in the recent clinic note. Written and verbal consent have been obtained. All patient questions have been answered to the patient?s satisfaction. No written or verbal guarantees have been given or implied. The patient has been NPO since midnight. The history has been reviewed and the history and physical is current. The signed consent was confirmed and placed in the patient chart. Patient imaging has been reviewed and is consistent with the diagnosis. Under mild sedation, the patient was brought into the operating room and placed on the table in the supine position. IV antibiotics were given by the anesthesia team as preoperative surgical prophylaxis. General sedation was then performed by the anesthesiateam. A pneumatic tourniquet was then placed about the left thigh. The operative extremity was then prepped and draped in the usual fashion. A popliteal block was performed by the anesthesia department. The extremity was then elevated and exsanguinated before the tourniquet was inflated to 325 mmHg. After inflation, the following procedure was then performed. Attention was directed to the left ankle where anteromedial ankle portal was established after insufflation of the ankle joint using 10 cc of sterile saline. This anterolateral portal was established using #15 blade. Trocar and cannula were inserted into the ankle joint. Ankle joint was examined and there was noted to be significant amount of synovitis. Anterolateral portal was e stablished using #15 blade. 2.8 mm shaver was inserted into the anterolateral portal. Under direct visualization of arthroscopy the left ankle underwent significant debridement. Minimal displacement of fractures was noted intraoperatively. This is consistent with patient's history of fall postoperatively. Lateral ankle joint appeared healthy with congruent ankle joint. Cartilage smooth and without defect. Medially significant cartilaginous damage noted to medial aspect of talar dome. After debridement of synovitis of ankle joint being joint was examined. No residual foreign body was visualized. Ankle scope and shaver were removed from the ankle joint. Scope was inserted into the anterolateral portal for final examination. Again, no residual foreign body was noted. Portals were closed using 4-0 nylon in portal stitch fashion. Incision sites were dressed with Xeroform, 4 x 4 gauze, Kerlix, Kodi bandage. Tourniquet was let down and good hyperemic response was noted to all digits of the left foot. The patient tolerated the procedure and anesthesia well and without complication. The patient was transported from the operating room to the recovery room with vital signs stable and vascular status intact to all digits of the left foot. The patient was given both written and verbal instructions to remain nonweightbearing to the operative extremity, to keep dressings/splint clean, dry and intact and to take pain medication as directed. The patient will follow-up in the outpatient setting at their scheduled appointment. The patient was discharged with my personal number and was instructed to call if any questions or issues should arise. They were discharged home once anesthesia criteria was met.
--- NOTE | 2024-11-18 10:15 | ANE.PACU2 ---
Inpatient post-anesthesia follow up: Airway intact: Yes Vital signs: Temperature 97.3 F Pulse Rate 73 Respiratory Rate 16 Blood Pressure 121/76 Pulse Oximetry 95 Oxygen Delivery Me thod Room Air Oxygen Flow Rate 8 Fraction of Inspir ed Oxygen Hydration adequate: Yes Nausea and vomiting: No Pain level: 1 Mental status: Baseline
== END 2024-11-18 10:19 | disposition home or self-care (01) ==
PROVIDERS: Visit Provider Podiatrist Foot & Ankle Surgery
PROC: (CPT 29897; principal; 2024-11-18 08:05)
DX: S82.852A Displaced trimalleolar fracture of left lower leg, initial encounter for closed fracture (principal); X58.XXXA Exposure to other specified factors, initial encounter; M24.072 Loose body in left ankle
CPT/HCPCS: 29897; 81025; J0690; J1100; J2250; J2405; J2704; J2795; J3010; J7030; J9999

== ENCOUNTER → 2024-12-16 14:13 | Outpatient (BNVA) | payer SELFPAY | PROVIDERS: Visit Provider Podiatrist Foot & Ankle Surgery | DX: M24.072 Loose body in left ankle (principal); Z98.890 Other specified postprocedural states; S93.432D Sprain of tibiofibular ligament of left ankle, subsequent encounter; S82.852D Displaced trimalleolar fracture of left lower leg, subsequent encounter for closed fracture with routine healing; X58.XXXD Exposure to other specified factors, subsequent encounter | CPT/HCPCS: 73610 ==

== ENCOUNTER → 2025-01-02 09:03 | Outpatient (BNVA) | payer MEDICAID, SELFPAY | PROVIDERS: Visit Provider Podiatrist Foot & Ankle Surgery | DX: M25.572 Pain in left ankle and joints of left foot (principal); Z98.890 Other specified postprocedural states; S82.852A Displaced trimalleolar fracture of left lower leg, initial encounter for closed fracture; S93.432A Sprain of tibiofibular ligament of left ankle, initial encounter; M24.072 Loose body in left ankle; X58.XXXA Exposure to other specified factors, initial encounter | CPT/HCPCS: 73610 ==

== ENCOUNTER 2025-03-26 09:57 | Outpatient (CLI) | payer MEDICAID, SELFPAY | END 2025-03-26 09:58 | disposition home or self-care (01) | PROVIDERS: Visit Provider Nurse Practitioner Family | DX: L40.0 Psoriasis vulgaris (principal); L85.3 Xerosis cutis; L40.59 Other psoriatic arthropathy; Z79.899 Other long term (current) drug therapy | CPT/HCPCS: 36415; 86480 ==